=== PATIENT | female | born 1985 | race Caucasian/White ===

== ENCOUNTER 2016-12-15 11:15 | Emergency (ER) | payer OTHER ==
[~2016-12-15] VITALS: Ht 162.6 cm; Wt 64.0 kg
[~2016-12-15 11:15] MED LIST: FLEXERIL10 MG PO; NAPROSYN500 MG OR; NAPROXEN375 MG OR; NO HOME MEDS; NO MEDS; ULTRAM50 MG OR
[2016-12-15] MEDS ORDERED: TESTOST CYP200 MG/ML SC (12:18)
[2016-12-15] MEDS ORDERED: IMITREX25 MG PO (12:19)
[2016-12-15] MEDS ORDERED: BUTALBITAL/APAP1 CAP PO (12:26)
[2016-12-15] MEDS ORDERED: ZOFRAN ODT4 MG PO (14:18)
[2016-12-15] MEDS ORDERED: TRAMADOL HYDROC50 MG PO (14:18)
[2016-12-15 14:42] VITALS: BP 117/71
== END 2016-12-15 14:52 | disposition home or self-care (01) | DRG 103 ==
LOC: ED 11:15
DX: G43.909 Migraine, unspecified, not intractable, without status migrainosus (principal); R11.0 Nausea

== ENCOUNTER 2018-06-19 02:22 | Emergency (ER) | payer OTHER ==
[~2018-06-19] VITALS: Ht 162.6 cm; Wt 67.6 kg
[~2018-06-19 02:22] MED LIST changes: +BUTALBITAL/APAP1 CAP PO; +IMITREX25 MG PO; +TESTOST CYP200 MG/ML SC; +TRAMADOL HYDROC50 MG PO; +ZOFRAN ODT4 MG PO
[2018-06-19 03:14] VITALS: BP 137/77
== END 2018-06-19 03:25 | disposition home or self-care (01) | DRG 603 ==
LOC: ED 02:22
DX: L08.9 Local infection of the skin and subcutaneous tissue, unspecified (principal); B95.7 Other staphylococcus as the cause of diseases classified elsewhere

== ENCOUNTER 2020-06-11 22:50 | Emergency (ER) | payer OTHER ==
[~2020-06-11] VITALS: Ht 162.6 cm; Wt 56.8 kg
[2020-06-11 23:45] LABS: URINE BILIRUBIN - DIPSTICK NEGATIVE (NEGATIVE); URINE BLOOD DIPSTICK TRACE-LYSED (NEGATIVE); URINE COLOR YELLOW; URINE GLUCOSE - DIPSTICK NEGATIVE (NEGATIVE); URINE KETONE NEGATIVE (NEGATIVE); URINE LEUK ESTERASE NEGATIVE (NEGATIVE); URINE NITRITE - DIPSTICK NEGATIVE (Negative); URINE PROTEIN - DIPSTICK NEGATIVE (NEG-TRACE); URINE SPECIFIC GRAVITY 1.015; URINE UROBILINOGEN - DIPSTICK 0.2 E.U./dL (0.2)
[2020-06-12 00:19] LABS: IMMATURE GRANULOCYTES 0.1 % (0.0-5.0); MEAN CELL VOLUME 94.9 fL CALC (80.0-100.0); MEAN CORPUSCULAR HGB CONC 33.7 g/dL CAL (32.0-36.0); NEUT# 3.68 thou/uL (1.82-7.42); RED BLOOD COUNT 5.31 mill/uL (4.70-6.10)
[2020-06-12 00:21] LABS: HEMATOCRIT 50.4 % (39.0-50.0)
[2020-06-12 00:36] LABS: ALBUMIN 4.6 g/dL (3.2-5.0); ALKALINE PHOSPHATASE 51 u/l (38-126); AMYLASE 86 u/l (30-110); BUN 13 mg/dL (9-20); BUN/CREATININE RATIO 16 (12-20 (CALC)); CHLORIDE 104 mmol/l (95-108); CREATININE 0.8 mg/dL (0.7-1.3); GFR > 60 ML/MIN (>=60 (CALC)); GFR FOR AFR.AMER. > 60 ML/MIN (>=60 (CALC)); LIPASE 66 u/l (23-300); POTASSIUM 3.9 mmol/l (3.5-5.1); SGOT/AST 30 u/l (17-59); SODIUM 139 mmol/l (137-146); TOTAL PROTEIN 7.4 g/dL (6.3-8.2)
[2020-06-12 00:51] LABS: ANION GAP 10 (6-22 (CALC)); BILIRUBIN, TOTAL 0.8 mg/dL (0.0-1.4); CARBON DIOXIDE 29 mmol/l (22-30)
[2020-06-12 00:52] LABS: MYOGLOBIN 46 ng/mL (0 - 121)
[2020-06-12] MEDS ORDERED: MECLIZINE25 MG PO (01:03)
[2020-06-12 01:09] VITALS: BP 95/51
== END 2020-06-12 01:20 | disposition home or self-care (01) | DRG 149 ==
LOC: ED 22:50
PROVIDERS: Family Medicine
DX: R42 Dizziness and giddiness (principal)